=== PATIENT | female | born 1975 | race Caucasian/White ===

== ENCOUNTER 2016-10-24 10:33 | Emergency (ER) | payer BC ==
[2016-10-24] MEDS ORDERED: Alum Hydrox/Mag Hydrox/Simeth 15 ML, Metoclopramide 5 MG, Lidocaine 2% 5 ML PO ONE ×3 (10:37)
--- NOTE | 2016-10-24 10:44 | EDM.PDOC ---
ED HPI GENERAL MEDICAL PROBLEM - General Chief Complaint: Chest Pain Stated Complaint: AMBULANCE Time Seen by Provider: 10/24/16 10:35 - History of Present Illness INITIAL COMMENTS - FREE TEXT/NARRATIVE: HISTORY AND PHYSICAL: History of present illness: Patient is a 41-year-old white female presents concern of chest discomfort she' s also had intermittent epigastric abdominal discomfort has a scheduled appointment for evaluation of possible peptic ulcer disease she denies melena hematochezia she equivocates regarding associated diaphoresis nausea vomiting shortness of breath she denies trauma no reported fever chills Review of systems: As per history of present illness and below otherwise all systems reviewed and negative. Past medical history: As per history of present illness and as reviewed below otherwise noncontributory. Surgical history: As per history of present illness and as reviewed below otherwise noncontributory. Social history: No reported history of drug or alcohol abuse. Family history: As per history of present illness and as reviewed below otherwise noncontributory. Physical exam: HEENT: Atraumatic, normocephalic, pupils reactive, negative for conjunctival pallor or scleral icterus, mucous membranes moist, throat clear, neck supple, nontender, trachea midline. Lungs: Clear to auscultation, breath sounds equal bilaterally, chest nontender. Heart: S1S2, regular, negative for clicks, rubs, or JVD. Abdomen: Soft, nondistended, nontender. Negative for masses or hepatosplenomegaly. Negative for costovertebral tenderness. Pelvis: Stable nontender. Genitourinary: Deferred. Rectal: Deferred. Extremities: Atraumatic, negative for cords or calf pain. Neurovascular unremarkable. Neuro: Awake, alert, oriented. Cranial nerves II through XII unremarkable. Cerebellum unremarkable. Motor and sensory unremarkable throughout. Exam nonfocal. Diagnostics: CBC CMP amylase lipase troponin chest x-ray EKG H. pylori Therapeutics: Normal saline 1 L bolus Zofran 4 mg IV when necessary GI cocktail Impression: #1 atypical chest pain #2 intermittent epigastric abdominal pain Definitive disposition and diagnosis as appropriate pending reevaluation and review of above. - Related Data Allergies Allergy/AdvReac Type Severity Reaction Status Date / Time Penicillins Allergy Anaphylactic Verified 10/24/16 10:38 Shock Home Meds: Home Meds . [No Known Home Meds] 10/24/16 [History] ED ROS GENERAL - Review of Systems Review Of Systems: ROS reveals no pertinent complaints other than HPI. ED EXAM, GENERAL - Physical Exam Exam: See Below (See dictation) Course - Vital Signs Last Recorded V/S: Last Vital Signs Temp 37.4 C 10/24/16 10:33 Pulse 126 H 10/24/16 10:33 Resp 22 H 10/24/16 10:33 BP 153/97 H 10/24/16 10:33 Pulse Ox 100 10/24/16 10:33 - Orders/Labs/Meds Orders: Active Orders 24 hr Category Date Time Status EKG 12 Lead [EKG Documentation Completion] [RC] STAT Care 10/24/16 10:35 Active DRUG SCREEN, URINE [URCHEM] Stat Lab 10/24/16 11:20 Received HCG QUALITATIVE,URINE [URCHEM] Stat Lab 10/24/16 11:20 Received UA W/MICROSCOPIC [URIN] Stat Lab 10/24/16 11:20 Received Sodium Chloride 0.9% [Normal Saline] 1,000 ml Med 10/24/16 10:45 Active IV ASDIRECTED Medication Orders Sodium Chloride (Normal Saline) 1,000 mls @ 999 mls/hr IV ASDIRECTED YOLANDA Last Admin: 10/24/16 10:44 Dose: 999 mls/hr Labs: Laboratory Tests 10/24/16 10/24/16 10/24/16 Range/Units 10:48 10:48 10:48 WBC 6.51 (4.0-11.0) K/uL RBC 4.50 (4.30-5.90) M/uL Hgb 14.4 (12.0-16.0) g/dL Hct 42.8 (36.0-46.0) % MCV 95.1 (80.0-98.0) fL MCH 32.0 (27.0-32.0) pg MCHC 33.6 (31.0-37.0) g/dL RDW Std Deviation 46.9 (28.0-62.0) fl RDW Coeff of Windy 14 (11.0-15.0) % Plt Count 201 (150-400) K/uL MPV 9.90 (7.40-12.00) fL Neut % (Auto) 54.8 (48.0-80.0) % Lymph % (Auto) 31.5 (16.0-40.0) % [place] % (Auto) 11.5 (0.0-15.0) % Eos % (Auto) 1.7 (0.0-7.0) % Baso % (Auto) 0.5 (0.0-1.5) % Neut # (Auto) 3.6 (1.4-5.7) K/uL Lymph # (Auto) 2.1 (0.6-2.4) K/uL [place] # (Auto) 0.8 (0.0-0.8) K/uL Eos # (Auto) 0.1 (0.0-0.7) K/uL Baso # (Auto) 0.0 (0.0-0.1) K/uL Nucleated RBC % 0.0 /100WBC Nucleated RBCs # 0 K/uL Sodium 139 (136-146) mmol/L Potassium 4.3 (3.5-5.1) mmol/L Chloride 108 (98-110) mmol/L Carbon Dioxide 22 (21-31) mmol/L BUN 7 (6.0-23.0) mg/dL Creatinine 0.8 (0.6-1.5) mg/dL Est Cr Clr Drug Dosing 86.63 mL/min Estimated GFR (MDRD) > 60.0 ml/min Glucose 106 (60-110) mg/dL Calcium 8.8 (8.8-10.8) mg/dL Total Bilirubin 0.3 (0.1-1.5) mg/dL AST 18 (5-40) IU/L ALT 15 (8-54) IU/L Alkaline Phosphatase 53 (40-150) Troponin I < 0.10 (0.0-0.29) NG/ML Total Protein 7.3 (6.0-8.0) g/dL Albumin 4.1 (3.5-5.0) g/dL Globulin 3.2 (2.0-3.5) g/dL Albumin/Globulin Ratio 1.3 (1.3-2.8) Amylase 28 (10-90) U/L Lipase 9 (7-80) U/L Ethyl Alcohol mg/dL H. pylori IgG Antibody (NEG) 10/24/16 10/24/16 Range/Units 10:48 10:48 WBC (4.0-11.0) K/uL RBC (4.30-5.90) M/uL Hgb (12.0-16.0) g/dL Hct (36.0-46.0) % MCV (80.0-98.0) fL MCH (27.0-32.0) pg MCHC (31.0-37.0) g/dL RDW Std Deviation (28.0-62.0) fl RDW Coeff of Windy (11.0-15.0) % Plt Count (150-400) K/uL MPV (7.40-12.00) fL Neut % (Auto) (48.0-80.0) % Lymph % (Auto) (16.0-40.0) % [place] % (Auto) (0.0-15.0) % Eos % (Auto) (0.0-7.0) % Baso % (Auto) (0.0-1.5) % Neut # (Auto) (1.4-5.7) K/uL Lymph # (Auto) (0.6-2.4) K/uL [place] # (Auto) (0.0-0.8) K/uL Eos # (Auto) (0.0-0.7) K/uL Baso # (Auto) (0.0-0.1) K/uL Nucleated RBC % /100WBC Nucleated RBCs # K/uL Sodium (136-146) mmol/L Potassium (3.5-5.1) mmol/L Chloride (98-110) mmol/L Carbon Dioxide (21-31) mmol/L BUN (6.0-23.0) mg/dL Creatinine (0.6-1.5) mg/dL Est Cr Clr Drug Dosing mL/min Estimated GFR (MDRD) ml/min Glucose (60-110) mg/dL Calcium (8.8-10.8) mg/dL Total Bilirubin (0.1-1.5) mg/dL AST (5-40) IU/L ALT (8-54) IU/L Alkaline Phosphatase (40-150) Troponin I (0.0-0.29) NG/ML Total Protein (6.0-8.0) g/dL Albumin (3.5-5.0) g/dL Globulin (2.0-3.5) g/dL Albumin/Globulin Ratio (1.3-2.8) Amylase (10-90) U/L Lipase (7-80) U/L Ethyl Alcohol < 10.0 mg/dL H. pylori IgG Antibody NEGATIVE (NEG) Meds: Medications Generic Name Dose Route Start Last Admin Trade Name Freq PRN Reason Stop Dose Admin Sodium Chloride 1,000 mls @ 999 mls/hr 10/24/16 10:45 10/24/16 10:44 Normal Saline IV 999 mls/hr ASDIRECTED YOLANDA Administration Discontinued Medications Generic Name Dose Route Start Last Admin Trade Name Freq PRN Reason Stop Dose Admin Al Hydroxide/Mg Hydroxide 15 0 ml 10/24/16 10:37 10/24/16 10:49 ml/ Metoclopramide HCl 5 mg/ PO 10/24/16 10:38 1 each Lidocaine HCl 5 ml ONETIME ONE Administration Departure - Departure Time of Disposition: 11:47 Disposition: Home, Self-Care 01 Condition: good Clinical Impression: Atypical chest pain, Epigastric abdominal pain Forms: ED Department Discharge Additional Instructions: The following information is given to patients seen in the emergency department who are being discharged to home. This information is to outline your options for follow-up care. We provide all patients seen in our emergency department with a follow-up referral. The need for follow-up, as well as the timing and circumstances, are variable depending upon the specifics of your emergency department visit. If you don't have a primary care physician on staff, we will provide you with a referral. We always advise you to contact your personal physician following an emergency department visit to inform them of the circumstance of the visit and for follow-up with them and/or the need for any referrals to a consulting specialist. The emergency department will also refer you to a specialist when appropriate. This referral assures that you have the opportunity for followup care with a specialist. All of these measure are taken in an effort to provide you with optimal care, which includes your followup. Under all circumstances we always encourage you to contact your private physician who remains a resource for coordinating your care. When calling for followup care, please make the office aware that this follow-up is from your recent emergency room visit. If for any reason you are refused follow-up, please contact the [facility] emergency department at and asked to speak to the emergency department charge nurse. Protonix as prescribed keep scheduled appointment tomorrow as directed stop smoking return as needed as discussed - My Orders Last 24 Hours: My Active Orders 10/24/16 10:35 EKG 12 Lead [EKG Documentation Completion] [RC] STAT 10/24/16 10:45 Sodium Chloride 0.9% [Normal Saline] 1,000 ml IV ASDIRECTED 10/24/16 11:20 DRUG SCREEN, URINE [URCHEM] Stat HCG QUALITATIVE,URINE [URCHEM] Stat UA W/MICROSCOPIC [URIN] Stat - Assessment/Plan Last 24 Hours: My Active Orders 10/24/16 10:35 EKG 12 Lead [EKG Documentation Completion] [RC] STAT 10/24/16 10:45 Sodium Chloride 0.9% [Normal Saline] 1,000 ml IV ASDIRECTED 10/24/16 11:20 DRUG SCREEN, URINE [URCHEM] Stat HCG QUALITATIVE,URINE [URCHEM] Stat UA W/MICROSCOPIC [URIN] Stat
[2016-10-24] MEDS ORDERED: Sodium Chloride 0.9% 1,000 ML IV SCH (10:45)
--- NOTE | 2016-10-24 11:13 | CR ---
EXAMINATION: Portable chest radiograph. HISTORY: Chest pain. FINDINGS: The trachea is midline. The cardiomediastinal silhouette is within normal limits. No pulmonary infil trates, effusions or pneumothorax. Osseous structures appear unremarkable. IMPRESSION: No acute cardiopulmonary process.
[2016-10-24 11:28] LABS: CHLORIDE,CL 108 mmol/L (98-110); SODIUM,NA 139 mmol/L (136-146)
[2016-10-24 12:54] VITALS: BP 132/70
== END 2016-10-24 11:50 | disposition home or self-care (01) ==
LOC: MW.ED 10:33
DX: R07.89 Other chest pain (principal); R10.13 Epigastric pain; Z88.0 Allergy status to penicillin
CPT/HCPCS: 36415; 71010; 80053; 80305; 81001; 81025; 82150; 83690; 84484; 85025; 86677; 93005; 96360; 99285; A9270; G0480; J7040; 99284

== ENCOUNTER → 2016-10-25 | Outpatient (CLI) | payer BC | LOC: MW.CHFP 09:00 | PROVIDERS: ATTEND Family Medicine | DX: R07.9 Chest pain, unspecified (principal) | CPT/HCPCS: 36415; 80061; 84443 ==

== ENCOUNTER → 2016-11-01 | Outpatient (CLI) | payer BC ==
--- NOTE | 2016-11-01 07:43 | PCM.PRNOTE ---
- Free Text/Narrative Note: Date of service 11/01/2016 Exercise ECG Indication CP Patient was brought to the stress test lab in postabsorptive state verbal and paper consent was obtained from patient Vital signs at resting state blood pressure of 114/76 with a heart rate of 99 EKG shows sinus rhythm, No ST changes Maximal heart rate of 152 and target heart rate is 99 Patient reached the target heart rate, completed stage IV Seferino protocol EKG shows sinus tachycardia, no further ST changes Peak blood pressure is 144/70 Total exercise time of 10.52 minutes METS 12.8 The test terminated due to reaching target HR Impression Normal hemodynamics, normal chronotropic, good exercise capacity Plan Per PCP
== END | disposition home or self-care (01) ==
LOC: MW.NM 06:30
PROVIDERS: ATTEND Family Medicine
DX: R07.9 Chest pain, unspecified (principal)
CPT/HCPCS: 93017

== ENCOUNTER 2016-11-06 10:04 | Day surgery (SDC) | payer BC ==
[~2016-11-06 10:04] MED LIST: Lactated Ringers 1,000 ML IV SCH; Sodium Chloride 0.9% 10 ML Syringe FLUSH PRN; Sodium Chloride 0.9% 2.5 ML Syringe FLUSH PRN
--- NOTE | 2016-11-06 11:05 | PCM.PREANE ---
Preanesthetic Assessment - Anesthesia/Transfusion/Family Hx Anesthesia History: Prior Anesthesia Without Reaction Family History of Anesthesia Reaction: No Transfusion History: No Prior Transfusion(s) Intubation History: Unknown - Review of Systems General: No Symptoms Pulmonary: No Symptoms Cardiovascular: No Symptoms Gastrointestinal: No symptoms Neurological: No Symptoms Other: Reports: None - Physical Assessment O2 Sat by Pulse Oximetry: 97 Respiratory Rate: 16 Vital Signs: Last Vital Signs Temp 37.4 C 11/06/16 10:40 Pulse 98 11/06/16 10:40 Resp 16 11/06/16 10:40 BP 136/76 11/06/16 10:40 Pulse Ox 97 11/06/16 10:40 Height: 1.68 m Weight: 64.864 kg ASA Class: 2 Mental Status: Alert & Oriented x3 Airway Class: Mallampati = 2 Dentition: Reports: Normal Dentition (lower retainer) Thyro-Mental Finger Breadths: 3 Mouth Opening Finger Breadths: 2 ROM/Head Extension: Full Lungs: Clear to auscultation, Normal respiratory effort Cardiovascular: Regular Rate, Regular Rhythm - Lab Values: Laboratory Last Values Urine HCG, Qual NEGATIVE (NEGATIVE) 11/06/16 10:12 - Allergies Allergies/Adverse Reactions: Allergies Allergy/AdvReac Type Severity Reaction Status Date / Time Penicillins Allergy Anaphylactic Verified 11/04/16 13:23 Shock - Blood Blood Available: No - Anesthesia Plan Pre-Op Medication Ordered: None - Acknowledgements Anesthesia Type Planned: MAC Pt an Appropriate Candidate for the Planned Anesthesia: Yes Alternatives and Risks of Anesthesia Discussed w Pt/Guardian: Yes Pt/Guardian Understands and Agrees with Anesthesia Plan: Yes PreAnesthesia Questionnaire HEENT History: Reports: None Cardiovascular History: Reports: None, Other (see below) (h/o abdominal and chest pain recently, stress test on friday was normal) Respiratory History: Reports: None Gastrointestinal History: Reports: Gastritis, PUD Other Gastrointestinal History: Stomach Ulcers, lost 15 pounds in two weeks due to loss of apetite sec. to postprandial pain.Hematemesis. Genitourinary History: Reports: None ADMINISTRATIVE SERVICES MANAGER History: Reports: None Musculoskeletal History: Reports: None Neurological History: Reports: None Psychiatric History: Reports: None Endocrine/Metabolic History: Reports: None Hematologic History: Reports: None Immunologic History: Reports: None Oncologic (Cancer) History: Reports: None Dermatologic History: Reports: None - Past Surgical History Head Surgeries/Procedures: Reports: None HEENT Surgical History: Reports: Oral surgery, Tonsillectomy (age 1 1/2) Other HEENT Surgeries/Procedures: wisdon teeth removed Cardiovascular Surgical History: Reports: None Respiratory Surgical History: Reports: None GI Surgical History: Reports: EGD (5 years ago (gastritis and stomach ulcers)) Female Surgical History: Reports: None Endocrine Surgical History: Reports: None Neurological Surgical History: Reports: None Musculoskeletal Surgical History: Reports: None Oncologic Surgical History: Reports: None - SUBSTANCE USE Smoking Status *Q: Current Every Day Smoker (1/2 ppd) Tobacco Use Within Last Twelve Months: Cigarettes Recreational Drug Use History: No - HOME MEDS Home Medications: Home Meds Pantoprazole Sodium 40 mg PO DAILY 11/04/16 [History] Sucralfate 1 gm PO QID 11/04/16 [History] - CURRENT (IN HOUSE) MEDS Current Meds: Current Medications Lactated Ringer's (Ringers, Lactated) 1,000 mls @ 125 mls/hr IV ASDIRECTED PENDING SALE TO [facility] Last Admin: 11/06/16 10:43 Dose: 125 mls/hr Sodium Chloride (Saline Flush) 10 ml FLUSH ASDIRECTED PRN PRN Reason: Keep Vein Open Sodium Chloride (Saline Flush) 2.5 ml FLUSH ASDIRECTED PRN PRN Reason: Keep Vein Open
[2016-11-06] MEDS ORDERED: Lidocaine 2% 5 ML SDV ONE ×3 (12:38→13:03)
[2016-11-06] MEDS ORDERED: Midazolam 1 MG/ML 2 ML SDV ONE (12:38)
[2016-11-06] MEDS ORDERED: Propofol 200 MG/20 ML SDV ONE ×3 (12:38→13:00)
--- NOTE | 2016-11-06 13:16 | PCM.OPNOTE ---
- General Post-Op/Procedure Note Date of Surgery/Procedure: 11/06/16 Operative Procedure(s): EGD with biopsy Findings: Mild gastritis, hiatal hernia, tissues changes at GE junction concerning for possible mass Pre Op Diagnosis: Heartburn Post-Op Diagnosis: Gastritis, hiatal hernia, inflammation at GE junction [place] [facility] [place]geon: Nora Zuluaga Condition: Good
--- NOTE | 2016-11-06 13:37 | PCM.POSTAN ---
POST ANESTHESIA ASSESSMENT - MENTAL STATUS Mental Status: alert, oriented - RESPIRATORY Respiratory Status: respiratory rate WNL, airway patent, O2 saturation stable - CARDIOVASCULAR CV Status: pulse rate WNL, blood pressure stable - GASTROINTESTINAL GI Status: no symptoms - POST OP HYDRATION Hydration Status: adequate & stable - OBSERVATIONS Free Text/Narrative:: no anesthesia problems
[2016-11-06 13:52] VITALS: BP 120/78
--- NOTE | 2016-11-06 15:59 | OR ---
SURGEON: BRIAN GARDINER MD DATE OF PROCEDURE: 11/06/2016 PREOPERATIVE DIAGNOSIS: Epigastric abdominal pain. POSTOPERATIVE DIAGNOSES: 1. Hiatal hernia. 2. Mild gastritis. 3. Esophageal reflux with esophagitis. PROCEDURE PERFORMED: Esophagogastroduodenoscopy with biopsy. ANESTHESIA: MAC. INSTRUMENT USED: Olympus endoscope. EXTENT OF EXAM: To the second portion of the duodenum. PREPARATION: Good. LIMITATIONS: None. INDICATIONS FOR EXAMINATION: The patient is a 41-year-old female, smoker who presents with epigastric abdominal pain. She has a history of ulcers. She was seen previously in the emergency room and started on Protonix and Carafate. With the implementation of these medications, her symptoms have gotten better. It has been many years since she had her last EGD. Given these constellation of findings, we discussed the need for a diagnostic EGD. We discussed the procedure, expected perioperative course, and the risks including bleeding, infection, or perforation. The patient verbalized understanding and wishes to proceed. PROCEDURE IN DETAIL: The patient was brought into the endoscopy suite and placed in the beach chair position. A time-out was completed verifying the patient's name, age, date of , allergies, and procedure to be performed. A bite block was placed in the patient's mouth and monitored anesthesia care was induced. Continuous oxygen was provided via nasal cannula throughout the procedure. Once adequate sedation was achieved, the scope was placed over the patient's tongue and advanced under direct visualization to the level of the second portion of the duodenum. This appeared normal and a photograph was taken. The remainder of the duodenum appeared normal. The scope was brought into the stomach and a photograph was taken of the pylorus as well as the GE junction. The esophageal mucosa appeared mildly inflamed and biopsies were taken of the antrum, body, and fundus. The scope was then brought down into the distal portion of the esophagus and a hiatal hernia was noted. There was an area of thickened irregular appearing tissue along the GE junction. Biopsies were taken of this area and sent as GE junction tissue. The remainder of the esophageal mucosa appeared normal. The scope was then removed from the patient and the procedure was terminated. The patient tolerated the procedure and was taken to the PACU in stable condition. ENDOSCOPIC DIAGNOSES: Gastritis, hiatal hernia, esophagitis. RECOMMENDATIONS: Follow up in clinic in 2 weeks. DEJAH HANLEY /[id number]
== END 2016-11-06 13:50 | disposition home or self-care (01) ==
LOC: MW.SDS 10:04
PROVIDERS: ATTEND Surgery
PROC: 0DB48ZX Excision of Esophagogastric Junction, Via Natural or Artificial Opening Endoscopic, Diagnostic (ICD-10-PCS; principal; 2016-11-06)
PROC: 0DB68ZX Excision of Stomach, Via Natural or Artificial Opening Endoscopic, Diagnostic (ICD-10-PCS; 2016-11-06)
DX: K29.50 Unspecified chronic gastritis without bleeding (principal); K31.7 Polyp of stomach and duodenum; K44.9 Diaphragmatic hernia without obstruction or gangrene; K20.9 Esophagitis, unspecified; F17.210 Nicotine dependence, cigarettes, uncomplicated; Z88.0 Allergy status to penicillin; Z90.89 Acquired absence of other organs; Z98.890 Other specified postprocedural states; Z79.899 Other long term (current) drug therapy
CPT/HCPCS: 43239; 81025; J2250; J7120; 00740; 88305; 88312; J2704